=== PATIENT | male | born 1975 | race Caucasian/White ===

== ENCOUNTER 2020-11-13 17:17 | Emergency (ER) | payer OTHER, MEDICAID, SELFPAY ==
[2020-11-13 17:22] VITALS: BP 146/98; PULSE 113; RESP 24; TEMP 36.4; O2SAT 99
--- NOTE | 2020-11-13 17:28 | DI.RAD.S_ITS ---
PROCEDURE: XR SHOULDER RT MIN 2V INDICATIONS: Possible dislocation TECHNIQUE: To views of the shoulder were acquired. COMPARISON: None. FINDINGS: Bones: No fractures or dislocations. No suspicious bony lesions. Visualized ribs appear intact. Mild acromioclavicular degenerative change. Soft tissues: No suspicious soft tissue calcifications. IMPRESSION: No acute finding. Dictated by: Emir Sheldon M.D. on 11/13/2020 at 18:06 Approved by: Emir Sheldon M.D. on 11/13/2020 at 18:06
--- NOTE | 2020-11-13 17:40 | ED_ITS ---
HPI - Extremity Injury (Upper) <JOSE ANTONIO Leal - Last Filed: 11/13/20 20:04> General Chief Complaint: Extremity Injury, Upper Stated Complaint: rt shoulder injury Time Seen by Provider: 11/13/20 17:31 Source: patient Mode of arrival: Ambulatory History of Present Illness HPI narrative: 45yo male presents to the ED for right shoulder pain. He states today he was in his house when he tripped over his dog and fell on his right shoulder. Patient heard a pop and felt significant pain, he states it was difficult to move shoulder. Patient arrived to the emergency department and moved his shoulder forward, felt a pop. He is unsure if his shoulder is out of socket. He denies any dislocation or fracture in the past. Patient denies any head injury, syncope, fevers, chills, nausea, vomiting, diarrhea, or any other concerns. Related Data Previous Rx's Medication Instructions Recorded hydrocodone-acetaminophen 1 tab PO Q4-6H PRN #10 tab 11/13/20 Review of Systems <JOSE ANTONIO Leal - Last Filed: 11/13/20 20:04> Review of Systems Narrative: REVIEW OF SYSTEMS: GENERAL: Denies fever. HENT: No head trauma. RESPIRATORY: No cough. GASTROINTESTINAL: No nausea or vomiting. GENITOURINARY: No flank pain. MUSCULOSKELETAL: Complains of right shoulder pain, see HPI. INTEGUMENTARY: No rash. NEURO: No numbness, tingling. Patient History <JOSE ANTONIO Leal - Last Filed: 11/13/20 20:04> Medical History No significant medical problems Exam <JOSE ANTONIO Leal - Last Filed: 11/13/20 20:04> Initial Vital Signs Initial Vital Signs: Vital Signs Temperature 97.6 F 11/13/20 17:22 Pulse Rate 113 H 11/13/20 17:22 Respiratory Rate 24 11/13/20 17:22 Blood Pressure 146/98 H 11/13/20 17:22 Pulse Oximetry 99 11/13/20 17:22 PHYSICAL EXAMINATION: GENERAL: Awake and alert. HENT: Normocephalic, atraumatic. CARDIOVASCULAR: Increased but regular rate. RESPIRATORY: Normal respiratory rate, trachea midline, airway patent. No stridor, nasal flaring or accessory muscle use. MUSCULOSKELETAL: Tenderness to biceps tendon area of right shoulder, decreased range of motion due to pain, patient is splinting his shoulder by holding his right arm with his left arm. No gross deformity visualized at this time. 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 No pain with palpation to elbow or clavicle. Normal gait and coordination. EXTREMITIES: CMS intact. SKIN: Warm, dry, soft, appropriate color for ethnicity. No lesions, rashes, or wounds. NEURO: Alert and Oriented X 3. No sensory deficits. PSYCH: Appropriate affect and mood. <Anthony Atkins DO - Last Filed: 11/14/20 06:55> Initial Vital Signs Initial Vital Signs: Vital Signs Temperature 97.6 F 11/13/20 17:22 Pulse Rate 113 H 11/13/20 17:22 Respiratory Rate 24 11/13/20 17:22 Blood Pressure 146/98 H 11/13/20 17:22 Pulse Oximetry 99 11/13/20 17:22 Course <JOSE ANTONIO Leal - Last Filed: 11/13/20 20:04> Course Course Narrative: Patient offered Toradol, declined at this time. Orders Ordered: ED Orders 11/13/20 17:28 XR shoulder RT min 2V Stat Vital Signs Vital signs: Vital Signs - 8 hr 11/13/20 17:22 11/13/20 18:52 Temperature 97.6 F Pulse Rate 113 H 82 Respiratory Rate 24 18 Blood Pressure 146/98 H 139/84 Pulse Oximetry 99 97 <Anthony Atkins DO - Last Filed: 11/14/20 06:55> Orders Ordered: ED Orders 11/13/20 17:28 XR shoulder RT min 2V Stat Vital Signs Vital signs: Vital Signs - 8 hr 11/13/20 17:22 11/13/20 18:52 Temperature 97.6 F Pulse Rate 113 H 82 Respiratory Rate 24 18 Blood Pressure 146/98 H 139/84 Pulse Oximetry 99 97 MDM - Extremity Injury (Upper) <JOSE ANTONIO Leal - Last Filed: 11/13/20 20:04> Medical Records Attestation: I reviewed the patient's medical records. Lab Data Attestation: I reviewed the patient's lab results. Imaging Data Extremity x-ray #1: Radiologist's Impression: [address] [id number] ReportSigned Patient: Colin Vides JMR#: [id number]: 1975Acct:[id number]/Sex: 45 / MDate of Service: 11/13/20Loc: EDAccession Number: [id number] Procedure: XR shoulder RT min 2V Ordering Provider: Anthony Atkins D.O. PROCEDURE: XR SHOULDER RT MIN 2V INDICATIONS: Possible dislocation TECHNIQUE: To views of the shoulder were acquired. COMPARISON: None. FINDINGS: Bones: No fractures or dislocations. No suspicious bony lesions. Visualized ribs appear intact. Mild acromioclavicular degenerative change. Soft tissues: No suspicious soft tissue calcifications. IMPRESSION: No acute finding. Dictated by: Emir Sheldon M.D. on 11/13/2020 at 18:06 Approved by: Emir Sheldon M.D. on 11/13/2020 at 18:06 [facility] Narrative Medical decision making narrative: 45-year-old male presents emergency depa rtment post fall and pain to right shoulder. X-rays negative for any dislocations or fractures, he may have suffered a subluxation or dislocation that has returned given his description of pain the significantly worse with movement, describes subluxation/dislocation with certain movements. This may be related to rotator cuff injury. Patient was given a sling, he was given a small amount of Vicodin. He was encouraged to take NSAIDs. Patient was referred referral. CMS intact. Patient agreed to plan of care verbalized understanding. Discharge Plan Departure Patient Disposition: Home Clinical Impression: Injury of shoulder Qualifiers: Encounter type: initial encounter Laterality: right Qualified Code(s): S49.91XA - Unspecified injury of right shoulder and upper arm, initial encounter Instructions: Shoulder Sprain Activity Restrictions/Additional Instructions: Thank you for entrusting me with your care today. As discussed, your x-rays negative for any fractures or dislocation at this time. However, your injuries concerning for tendon and ligament injuries. Have referred you to an orthopedic who specializes and muscles and bones. Please call the number listed below tomorrow and schedule an appointment as soon as possible. Keep your arm and sling to prevent it from moving. You may take Aleve for pain. Additionally I have prescribed you some Vicodin, you may use this for signific ant pain. You have been prescribed a narcotic medication, this medication can make you drowsy. Do not drive while using this medication or perform activities that require mental alertness. These medications can also make you constipated, please use [id number] docusate sodium as needed for constipation. Return emergency department for any new or worsening symptoms. Prescriptions: New hydrocodone-acetaminophen 5-325 mg tablet 1 tab PO Q4-6H PRN (Reason: pain) Qty: 10 RF: 0 Referrals: Saniya Rondon MD [Physician] - <Anthony Atkins DO - Last Filed: 11/14/20 06:55> [facility] Dr Atkins Co-Sign Statement: I was available for consultation during this patient's emergency department visit. This chart is signed by myself for administrative purposes only. I did not have direct contact with this patient during this visit. They were seen independently by the APC.
[2020-11-13 18:52] VITALS: BP 139/84; PULSE 82; RESP 18; O2SAT 97
== END 2020-11-13 18:53 | disposition home or self-care (01) ==
PROVIDERS: Emergency Provider Nurse Practitioner
DX: S49.91XA Unspecified injury of right shoulder and upper arm, initial encounter (principal); W19.XXXA Unspecified fall, initial encounter
CPT/HCPCS: 73030; 99283